=== PATIENT | male | born 1970 | race Caucasian/White ===

== ENCOUNTER 2018-07-18 09:43 | Inpatient (IN) | payer MEDICARE, MEDICAID ==
[~2018-07-18] VITALS: Ht 182.9 cm; Wt 100.0 kg
[2018-07-18 13:02] LABS: BASOPHILS # (AUTO) 0.1 X10'3 (0-0.2); EOSINOPHILS # (AUTO) 0.8 X10'3 (0-0.9); EOSINOPHILS % (AUTO) 9.1 % (0-6); HEMATOCRIT 43.9 % (42.0-52.0); HEMOGLOBIN 15.2 g/dl (14.0-17.9); LYMPHOCYTES # (AUTO) 1.8 X10'3 (1.1-4.8); LYMPHOCYTES % (AUTO) 21.6 % (21-51); MEAN CORPUSCULAR HEMOGLOBIN 32.1 PG (27.0-31.0); MEAN CORPUSCULAR HGB CONC 34.5 g/dL (33.0-36.5); MEAN PLATELET VOLUME 9.1 FL (7.4-10.4); MONOCYTES # (AUTO) 0.8 X10'3 (0-0.9); MONOCYTES % (AUTO) 9.8 % (2-12); NEUTROPHILS # (AUTO) 4.8 X10'3 (1.8-7.7); NEUTROPHILS % (AUTO) 58.5 % (42-75); PLATELET COUNT 221 X10'3 (140-440); RED BLOOD COUNT 4.72 X10'6 (4.70-6.10); RED CELL DISTRIBUTION WIDTH 14.1 % (11.5-14.5); WHITE BLOOD COUNT 8.3 X10'3 (4.5-11.0)
[2018-07-18 13:15] LABS: ALANINE AMINOTRANSFERASE 18 U/L (12-78); ALBUMIN 3.8 G/DL (3.4-5.0); ALKALINE PHOSPHATASE 78 IU/L (46-116); ANION GAP 7 (8-16); ASPARTATE AMINO TRANSFERASE 15 U/L (10-37); BILIRUBIN,TOTAL 0.5 MG/DL (0.1-1.0); BLOOD UREA NITROGEN 12 MG/DL (7-18); BUN/CREATININE RATIO 12.5 (5.4-32.0); C-REACTIVE PROTEIN 2.58 MG/DL (0.0-0.5); CALCIUM 9.1 MG/DL (8.5-10.1); CHLORIDE 105 MMOL/L (99-107); CREATININE 0.96 MG/DL (0.60-1.10); GLUCOSE 83 MG/DL (70-104); POTASSIUM 4.2 MMOL/L (3.5-5.1); SODIUM 139 MMOL/L (135-145); TOTAL CARBON DIOXIDE 27.4 MMOL/L (24-32); TOTAL PROTEIN 7.7 G/DL (6.4-8.2); eGFR 83 ML/MIN
[2018-07-18] MEDS ORDERED: ALBU90AE INH (14:22)
[2018-07-18] MEDS ORDERED: TOPI50TA24 PO (14:22)
[2018-07-18] MEDS ORDERED: DICL100G30 TOP (14:22)
[2018-07-18] MEDS ORDERED: BACL20TA PO (14:22)
[2018-07-18] MEDS ORDERED: NABU500T2 PO (14:22)
--- NOTE | 2018-07-18 14:25 | NUR ---
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
[2018-07-18] MEDS ORDERED: normal saline 1000ml 1,000 ML IV SCH (14:39)
[2018-07-18] MEDS ORDERED: magnesium Cl slow-release 64mg tablet PO PRN (14:40)
[2018-07-18] MEDS ORDERED: HYDROcodone/acetaminophen 5mg/325mg tablet PO PRN (14:40)
[2018-07-18] MEDS ORDERED: potassium Cl 20 mEq SR tablet PO PRN ×2 (14:40)
[2018-07-18] MEDS ORDERED: magnesium 2GM in 50ml NS 50 ML IV PRN (14:40)
[2018-07-18] MEDS ORDERED: acetaminophen 325mg tablet PO PRN ×2 (14:40)
[2018-07-18] MEDS ORDERED: magnesium hydroxide 30ml (MOM) UD suspension PO PRN (14:40)
[2018-07-18] MEDS ORDERED: HYDROcodone/acetaminophen 10/325mg tab PO PRN (14:40)
[2018-07-18] MEDS ORDERED: ondansetron/PF 4mg/2ml inj IV PRN (14:40)
[2018-07-18] MEDS ORDERED: mag hydrox/Alum hydrox/simeth 30ml oral suspension PO PRN (14:40)
[2018-07-18] MEDS ORDERED: morphine 4 MG/ML inj SYRINge IV PRN (14:40)
[2018-07-18] MEDS ORDERED: magnesium 4gm in 100ml NS 100 ML IV PRN (14:40)
[2018-07-18] MEDS ORDERED: potassium Cl 40MEQ/NS 500ml 500 ML IV PRN ×2 (14:40)
[2018-07-18] MEDS ORDERED: vancomycin inj 1,250 MG in normal saline 250ml IV soln 250 ML IV SCH (15:00)
--- NOTE | 2018-07-18 15:36 | NUR ---
mri called stated pt has pacemaker and unable to do mri at this time. [facility] and will do mri tomorrow.
--- NOTE | 2018-07-18 15:44 | NUR ---
called pharmacy stated will make vanco and bring up
[2018-07-18] MEDS ORDERED: FLUT12AE9 INH (16:11)
[2018-07-18 17:00] VITALS: BP 96/52
[2018-07-18] MEDS ORDERED: AMOX-580 PO (18:19)
[2018-07-18] MEDS ORDERED: gadopentetate dimeglumine 10 MMOL/20 ML syringe IV ONE (19:24)
[2018-07-18] MEDS ORDERED: heparin, porcine 5000 units/ml vial SQ SCH (20:00)
[2018-07-19] MEDS ORDERED: K and/or MAG REPLACEMENT MC SCH (08:00)
[2018-07-19] MEDS ORDERED: VANCOMYCIN LEVEL IV ONE (14:30)
== END 2018-07-18 18:32 | disposition left against medical advice (07) | DRG 541 ==
LOC: ER 09:43 → ED HOLD 14:39
PROVIDERS: ADMIT Internal Medicine; ATTEND Internal Medicine
DX: M86.8X7 Other osteomyelitis, ankle and foot (principal); L03.032 Cellulitis of left toe; G89.29 Other chronic pain; M54.9 Dorsalgia, unspecified; R59.9 Enlarged lymph nodes, unspecified; I25.10 Atherosclerotic heart disease of native coronary artery without angina pectoris; Z53.21 Procedure and treatment not carried out due to patient leaving prior to being seen by health care provider; Z79.899 Other long term (current) drug therapy; Z87.891 Personal history of nicotine dependence; Z95.0 Presence of cardiac pacemaker
CPT/HCPCS: 36415; 73630; 80053; 83605; 84145; 85025; 85651; 86140; 87040; 93971; 99285; A9579; G0378; J3370; J7030